=== PATIENT | male | born 1980 | race Caucasian/White ===

== ENCOUNTER 2019-03-10 16:08 | Emergency (ER) | payer SELFPAY ==
[~2019-03-10] VITALS: Ht 172.7 cm; Wt 100.0 kg
[2019-03-10 16:14] VITALS: Ht 172.7 cm; Wt 100.0 kg
[2019-03-10] MEDS ORDERED: RISPERDAL4 MG PO (16:18)
[2019-03-10] MEDS ORDERED: ZOLOFT100 MG PO (16:30)
[2019-03-10] MEDS ORDERED: LITHOBID 300 M300 MG PO (16:30)
[2019-03-10] MEDS ORDERED: ATARAX 25 MG TA25 MG PO (16:30)
[2019-03-10 16:38] LABS: APPEARANCE CLEAR (CLEAR); BILIRUBIN NEGATIVE (NEGATIVE); COLOR YELLOW (YELLOW); GLUCOSE NEGATIVE (NEGATIVE); KETONE NEGATIVE (NEGATIVE); NITRITE NEGATIVE (NEGATIVE); PROTEIN NEGATIVE (NEGATIVE); UROBILINOGEN NORMAL (NORMAL)
[2019-03-10] MEDS ORDERED: DEPAKOTE ER500 MG PO (16:39)
[2019-03-10] MEDS ORDERED: PRAVACHOL40 MG PO (16:40)
[2019-03-10] MEDS ORDERED: CARAFATE1 G PO (16:41)
[2019-03-10] MEDS ORDERED: MELATONIN 3 MG1 TAB PO (16:41)
[2019-03-10] MEDS ORDERED: OMEPRAZOLE20 M1 PO (16:42)
[2019-03-10 16:46] LABS: UDS - AMPHET NEGATIVE QUAL (NEGATIVE); UDS - BARB NEGATIVE QUAL (NEGATIVE); UDS - BENZO NEGATIVE QUAL (NEGATIVE); UDS - COCAINE NEGATIVE QUAL (NEGATIVE); UDS - OPIATE NEGATIVE QUAL (NEGATIVE); UDS - PCP NEGATIVE QUAL (NEGATIVE); UDS - THC NEGATIVE QUAL (NEGATIVE)
[2019-03-10 16:59] LABS: BASOPHILS 0.7 % (0-2); EOSINOPHILS 5.1 % (0-7); HEMATOCRIT 43.6 % (42.0-54.0); HEMOGLOBIN 15.8 g/dL (13.5-17.5); IMMATURE GRANULOCYTES 0.2 % (0-5); LYMPHOCYTES 24.3 % (15-50); MCH 32.3 pg (26.0-34.0); MCHC 36.2 g/dL (31.0-37.0); MCV 89.2 fL (80.0-100.0); MEAN PLATELET VOLUME 8.4 fL (7.4-10.4); MONOCYTES 6.3 % (2-11); NEUTROPHILS 63.4 % (40-80); PLATELET COUNT 205 10x3/uL (130-400); RBC 4.89 10x6/uL (4.20-6.10); RDW 11.9 % (11.5-14.5); WBC 9.2 10x3/uL (4.8-10.8)
--- NOTE | 2019-03-10 17:06 | NUR ---
PT ASSESSED A HIGH RISK. ATTENDING AND CHARGE NURSE NOTIFIED. SAFETY PLAN INITIATED. SITTER ORDERED PER DR. SAUCEDA. PT HAS A HX OF SCHIZOPHRENIA AND IS HEARING VOICES. PT DENIES EVER ATTEMPTED TO HURT SELF AND STATED ONLY THOUGHTS WITH NO REAL PLAN.
[2019-03-10 17:19] LABS: CALC OSMOLALITY 282 mosm/kg (275-300); CALCIUM 8.6 mg/dL (8.5-10.1); CHLORIDE - SERUM 103 mmol/L (98-107); CREATININE - SERUM 1.1 mg/dL (0.6-1.3); GLUCOSE 106 mg/dL (74-106); POTASSIUM - SERUM 4.2 mmol/L (3.5-5.1); SODIUM 141 mmol/L (136-145); UREA NITROGEN 19 mg/dL (7-18); eGFR NON AFRICAN AMERICAN 80 mL/min (90-120)
[2019-03-10 17:21] LABS: LITHIUM 0.29 mmol/L (0.60-1.20); SALICYLATES 1.1 mg/dL (2.8-20.0)
[2019-03-10 17:27] LABS: ALBUMIN 3.9 g/dL (3.4-5.0); ALKALINE PHOSPHATASE 80 U/L (46-116); ALT (SGPT) 86 U/L (10-68); BILIRUBIN - TOTAL 0.42 mg/dL (0.2-1.3); MAGNESIUM - SERUM 2.2 mg/dL (1.8-2.4); PROTEIN - SERUM 7.2 g/dL (6.4-8.2)
[2019-03-10 21:29] VITALS: BP 114/67
== END 2019-03-10 21:56 ==
LOC: D.ER 16:08
PROVIDERS: Emergency Medicine
DX: R45.851 Suicidal ideations (principal); F41.9 Anxiety disorder, unspecified; F32.9 Major depressive disorder, single episode, unspecified; F20.9 Schizophrenia, unspecified; K21.9 Gastro-esophageal reflux disease without esophagitis